=== PATIENT | male | born 2000 | race Caucasian/White ===

== ENCOUNTER 2022-06-21 22:43 | Emergency (ER) | payer BC, SELFPAY ==
[2022-06-21 22:50] VITALS: BP 114/66; PULSE 128; RESP 18; TEMP 37.4; O2SAT 100; BMI 19.0
[2022-06-21] MEDS: SODIUM CHLORIDE 0.9% 1,000 ML 1000 ML IV (23:00)
--- NOTE | 2022-06-21 23:24 | ED_ITS ---
HPI - Nausea/Vomiting/Diarrhea General Chief complaint: Nausea/Vomiting/Diarrhea Stated complaint: vomiting, heart is racing Time Seen by Provider: 06/21/22 22:48 Source: patient Mode of arrival: Ambulatory History of Present Illness HPI Narrative: 22-year-old male nonsmoker with noncontributory medical history presents with a chief complaint of nausea and vomiting along with generalized abdominal pain and heart racing. He states that he is had issues with his heart racing as high as the 130s for least the past few weeks and was unable to pursue an element at work as this has been persistent. He denies chest pain or shortness of breath along with this. He denies any trauma, injury, history of blood clot, travel, cancer or lower extremity pain, swelling or redness. He feels a bit fatigued and lightheaded and has been having trouble keeping liquids down. He states that the abdominal cramping that he feels seems to improve with vomiting. He denies any exposure to other ill persons. He is had no recent antibiotics, medication or dietary change Related Data Previous Rx's Medication Instructions Recorded ondansetron 4 mg disintegrating 4 mg PO TID-QID PRN nausea and 06/22/22 tablet vomiting #10 tabs pantoprazole 40 mg tablet,delayed 40 mg PO DAILY #30 tabs 06/22/22 release (Protonix) Allergies Allergy/AdvReac Type Severity Reaction Status Date / Time lidocaine Allergy Unknown Verified 06/22/22 00:43 procaine [From Novocain] Allergy Unknown Verified 06/22/22 00:43 Review of Systems Review of Systems Narrative: GENERAL: See HPI HEENT: Denies sinus pain, ear pain, sore throat, difficulty swallowing, dizzine ss. RESPIRATORY: Denies dyspnea, cough, wheezing, hemoptysis, sputum. CARDIOVASCULAR: See HPI GASTROINTESTINAL: See HPI : Denies dysuria, frequency, incontinence, hematuria, urinary retention. MUSCULOSKELETAL: denies weakness, joint pain, or bony pain SKIN: Denies rash, skin lesions, or other NEUROLOGIC: Denies weakness, headache, numbness, change in speech, confusion, seizures, incoordination. PSYCHIATRIC: No concerning psychosocial issues. 12 point review of systems is negative except for those stated above Patient History Social History Smoking Status: Never smoker Smoking Status: Never smoker alcohol intake frequency: a few times a month Substance Use Type: does not use Exam Narrative Exam Narrative: GENERAL: [22] year old patient appears stated age. Well-developed patient, in mild distress. HEAD: Atraumatic. Normocephalic. EYES: Pupils equal round and reactive. Extraocular motions intact. No scleral icterus. No injection or drainage. ENT: Nose without bleeding, purulent drainage. Throat without erythema, tonsillar hypertrophy or exudate. Airway patent. NECK: Trachea midline. Non tender CARDIOVASCULAR: Tachycardic but regular rhythm without murmurs, gallops, or rubs. RESPIRATORY: Clear to auscultation. Breath sounds equal bilaterally. No wheezes, rales, or rhonchi. GASTROINTESTINAL: Abdomen soft, non-tender, nondistended. EXTREMITIES: No edema or joint tenderness. BACK: Nontender without deformity or crepitance. No flank tenderness. NEURO: AOx3. SKIN: No rash or erythema of visible areas Initial Vital Signs Initial Vital Signs: Vital Signs Temperature 99.3 F 06/21/22 22:50 Pulse Rate 128 H 06/21/22 22:50 Respiratory Rate 18 06/21/22 22:50 Blood Pressure 114/66 06/21/22 22:50 Pulse Oximetry 100 06/21/22 22:50 Oxygen Delivery Method Room Air 06/21/22 22:50 Course Orders Ordered: Discontinued Medications Sodium Chloride (Normal Saline 0.9%) 1,000 mls @ 1,000 mls/hr IV BOLUS ONE Stop: 06/22/22 00:22 Last Infusion: 06/22/22 00:18 Dose: 0 mls/hr Documented By: Admin: 06/21/22 23:00 Dose: 1,000 mls/hr Documented By: FEROZ Sodium Chloride (Normal Saline 0.9%) 1,000 mls @ 1,000 mls/hr IV BOLUS ONE Stop: 06/22/22 01:41 Last Infusion: 06/22/22 01:56 Dose: 0 mls/hr Documented By: Admin: 06/22/22 00:48 Dose: 1,000 mls/hr Documented By: FEROZ Ondansetron HCl (Ondansetron 4 Mg/2 Ml Inj) 4 mg IV NOW ONE Stop: 06/21/22 23:24 Last Admin: 06/21/22 23:49 Dose: 4 mg Documented By: FEROZ Ondansetron HCl (Ondansetron 4 Mg Odt Prepack) 1 bottle MISC SEEINSTR ONE Stop: 06/22/22 03:09 Last Admin: 06/22/22 03:25 Dose: 1 bottle Documented By: ADIS Pantoprazole Sodium (Pantoprazole 40 Mg Vial) 40 mg IV NOW ONE Stop: 06/21/22 23:25 Last Admin: 06/21/22 23:49 Dose: 40 mg Documented By: FEROZ Reevaluation(s) Reevaluation #1: Significant improvement in symptoms with above-stated therapies, still tachycardic but somewhat improved Vital Signs Vital signs: Vital Signs - 8 hr 06/21/22 22:50 Temperature 99.3 F Pulse Rate 128 H Respiratory Rate 18 Blood Pressure 114/66 Pulse Oximetry 100 Oxygen Delivery Method Room Air MDM - Nausea/Vomiting/Diarrhea Lab Data 06/21/22 23:10 06/21/22 23:10 Labs: Lab Results 06/21/22 06/21/22 06/21/22 Range/Units 23:10 23:10 23:10 WBC 6.9 (4.5-11.0) X10^3/uL RBC 6.07 H (4.5-5.9) X10^6/uL Hgb 18.2 H (13.5-17.5) g/dL Hct 51.6 (41-53) % MCV 85.0 (80-100) fL MCH 30.0 (26-34) PG MCHC 35.3 (30-36) % RDW 12.8 (11.6-14.8) % Plt Count 176 (150-400) X10^3/uL Neut % (Auto) 91.9 H (50-75) % Lymph % (Auto) 3.9 L (25-40) % Pender % (Auto) 3.9 (3-14) % Eos % (Auto) 0.2 L (2-4) % Baso % (Auto) 0.1 (0-2) % Neut # (Auto) 6300 (0554-3009) /uL Lymph # (Auto) 300 L (2284-6955) /uL Pender # (Auto) 300 (0-900) /uL Eos # (Auto) 0 (0-450) /uL Baso # (Auto) 0 (0-100) /uL D-Dimer 757 H (<500) ng/ml Sodium 138 (137-145) mmol/L Potassium 4.1 (3.4-5.1) mmol/L Chloride 98 (98-107) mmol/L Carbon Dioxide 24 (22-32) mmol/L BUN 30 H (9-20) mg/dL Creatinine 1.00 (0.66-1.25) mg/dL Estimated GFR > 60 (>60) mL/min BUN/Creatinine Ratio 30.0 H (6-22) Glucose 122 H (70-100) mg/dL Calcium 9.5 (8.4-10.2) mg/dL Total Bilirubin 2.0 H (0.2-1.3) mg/dL AST 33 (17-59) IU/L ALT 20 (<50) IU/L Alkaline Phosphatase 65 (38-126) U/L Total Protein 8.6 H (6.3-8.2) g/dL Albumin 5.0 (3.5-5.0) g/dL Globulin 3.6 (1.7-4.1) g/dL Albumin/Globulin Ratio 1.4 (1.0-2.8) Urine Dip Bedside Urine Glucose Negative Bedside Urine Bilirubin - Negative Bedside Urine Ketone +++ 80 Urine Specific [place] 1.025 Bedside Urine Occult Blood - Negative Bedside Urine pH 6.0 Bedside Urine Protein + 30 Bedside Urine Urobilinogen - Negative Bedside Urine Nitrite - Negative Bedside Urine Leukocytes - Negative Esterase MDM Narrative Medical decision making narrative: CC: 22-year-old male with nausea, vomiting, tachycardia Complicating co-morbidities: History of tachycardia Data collected from: Patient Medical records reviewed: No Prior notes are able to be reviewed in our EMR Differential considered, but not limited to: Dehydration, electrolyte abnormality, pulmonary embolism versus other Exam documented above, pertinent findings include: Tachycardic and regular, w ithout increased work of breathing, abdomen soft and initially minimally, generalized tender but improved over duration. Moist mucous membranes Lab Test results independently reviewed as above. Pertinent findings: No significant leukocytosis or left shift, electrolytes within normal range, no ankush dence of renal failure. D-dimer is above age corrected cutoff Independently reviewed EKG as above Imaging studies independently reviewed: CTA of chest without evidence of pulmonary embolism or other significant abnormality. Abdomen and pelvis also without significant findings Treatments: Saline and Zofran Re-evaluations: Significant improvements in symptoms Discussion: Patient with largely reassuring history and physical exam without respiratory distress, evidence of significant dehydration or high-risk abdominal exam findings. Multiple diagnoses considered as mentioned above, however labs, imaging, response to therapies are reassuring. The underlying cause of what appears to be a persistent tachycardia is unclear at this time, I spent a fair amount of time discussing the importance of close follow-up with the patient and potential need for cardiac referral. He states that he and his significant other preparing to move to [place] and he will take this under advisement. He has been given return precautions as noted and questions answered to his apparent satisfaction Disposition: see below, along with detailed discharge instructions that have been reviewed with patient as well as indications for ED re-evaluation and additional outpatient follow up Discharge Plan Departure Patient Disposition: Home Clinical Impression: Vomiting, Sinus tachycardia Instructions: DI for Vomiting -- Adult Activity Restrictions/Additional Instructions: *You have been diagnosed with [abdominal pain nausea, vomiting and tachycardia] * As we discussed your history and physical exam as well as labs and imaging are very reassuring. There is no evidence of any severe diagnoses that would require a specific or immediate intervention. *What to do: *Please continue to take your regular medications as directed. [x ] New medication prescriptions sent to your pharmacy: [[facility] in [place] ] *Please follow up with your primary care provider in 2-3 days, call for an appointment. Let them know you were seen in the Emergency Department and that we ask that you be seen in follow up. We will electronically transmit a record of today's note if your PCP is in our system *Please consider a clear liquid diet for the next 24-48 hours and then slowly a dvance to regular as tolerated. Also, try to avoid alcohol, nicotine, caffeine, spicy, acidic or fatty foods as this may worsen your symptoms *If you do not have a primary care provider please contact the [facility] Resource line at [phone]. They will ask some questions about your medical history and help get you set up with a doctor in the community. * as we discussed you have had elevated heart rate for a while now and though there was no clear explanation tonight such as profound dehydration, anemia, underlying infection or blood clot it is something that can not be ignored you will need to follow-up with your primary care provider who will likely either have you set up with a crown ceramist or a referral to a rigger third. *Return to Emergency Department if you should have any new, worsening or concerning symptoms, such as [fever greater than 101 F, shaking chills, wor sening pain, persistent vomiting or other bothersome symptoms] Prescriptions: New pantoprazole [Protonix] 40 mg tablet,delayed release (DR/EC) 40 mg PO DAILY Qty: 30 0RF ondansetron 4 mg tablet,disintegrating 4 mg PO TID-QID PRN (Reason: nausea and vomiting) Qty: 10 0RF Stand Alone Forms: Patient Portal/API
[2022-06-21 23:37] LABS: D Dimer 757 ng/ml (<500)
[2022-06-21 23:39] LABS: Add Manual Diff / Slide Review NO; Alanine Aminotransferase 20 IU/L (<50); Albumin Globulin Ratio 1.4 (1.0-2.8); Alkaline Phosphatase 65 U/L (38-126); Aspartate Aminotransferase 33 IU/L (17-59); Basophils Absolute Auto 0 /uL (0-100); Basophils Percent Auto 0.1 % (0-2); Blood Urea Nitrogen 30 mg/dL (9-20); Calcium 9.5 mg/dL (8.4-10.2); Carbon Dioxide 24 mmol/L (22-32); Chloride 98 mmol/L (98-107); Eosinophils Absolute Auto 0 /uL (0-450); Eosinophils Percent Auto 0.2 % (2-4); Estimated Glomerular Filt Rate > 60 mL/min (>60); Globulin 3.6 g/dL (1.7-4.1); Glucose 122 mg/dL (70-100); HEMOLYSIS 18 (0-50); Hematocrit 51.6 % (41-53); Hemoglobin 18.2 g/dL (13.5-17.5); Lymphocytes Absolute Auto 300 /uL (1100-4500); Lymphocytes Percent Auto 3.9 % (25-40); Mean Corpuscular HGB Conc 35.3 % (30-36); Monocytes Absolute Auto 300 /uL (0-900); Monocytes Percent Auto 3.9 % (3-14); Neutrophils Absolute Auto 6300 /uL (1500-7000); Neutrophils Percent Auto 91.9 % (50-75); Platelet Count 176 X10^3/uL (150-400); Potassium 4.1 mmol/L (3.4-5.1); Red Blood Cell Count 6.07 X10^6/uL (4.5-5.9); Red Cell Distribution Width 12.8 % (11.6-14.8); Sodium 138 mmol/L (137-145); Total Protein 8.6 g/dL (6.3-8.2); White Blood Cell Count 6.9 X10^3/uL (4.5-11.0)
[2022-06-21] MEDS: ONDANSETRON 4 MG/2 ML INJ IV (23:49)
[2022-06-21] MEDS: PANTOPRAZOLE 40 MG VIAL IV (23:49)
[2022-06-21 23:52] VITALS: BP 125/63; PULSE 106; RESP 18; O2SAT 97
--- NOTE | 2022-06-22 00:46 | DI.CT.S_ITS ---
PROCEDURE: CT ANGIO CHEST PE PROTOCOL INDICATIONS: SOB, tachycardia, critical dimer TECHNIQUE: After the administration of intravenous contrast, 2 mm thick sections acquired from the pulmonary apices to the posterior costophrenic angles. 3-dimensional maximum intensity projection (MIP) coronal and sagittal reformats were then acquired through the thorax. For radiation dose reduction, the following was used: automated exposure control, adjustment of mA and/or kV according to patient size. COMPARISON: None. FINDINGS: Image quality: Excellent. Pulmonary arteries: Pulmonary arteries are normal in size, and demonstrate no intraluminal filling defects to suggest central pulmonary embolism. Lower Neck: No lymphadenopathy by size criteria. Thyroid: Visualized thyroid demonstrates no discrete nodules. Axillae: No lymphadenopathy by size criteria. Chest Wall: Unremarkable. Bones: Visualized osseous structures demonstrate no suspicious lesions. Lungs and Airways: No acute consolidation. No suspicious pulmonary nodules. The trachea and central airways are patent. Pleura: No pneumothorax or pleural effusions. Heart: Heart size is normal. No pericardial effusion. Thoracic Vessels: The thoracic aorta is normal in size. Mediastinum and Olya: No lymphadenopathy by size criteria. Esophagus: No wall thickening. No hiatal hernia. Abdomen: Visualized upper abdominal solid organs appear normal in the early arterial phase of enhancement. IMPRESSION: 1. No evidence of pulmonary embolism. 2. No acute airspace consolidation. Dictated by: Tomi Nagy M.D. on 06/22/2022 at 2:12 Approved by: Tomi Nagy M.D. on 06/22/2022 at 2:17
[2022-06-22] MEDS: SODIUM CHLORIDE 0.9% 1,000 ML 1000 ML IV (00:48)
--- NOTE | 2022-06-22 01:02 | DI.CT.S_ITS ---
PROCEDURE: CT ABDOMEN PELVIS W CON INDICATIONS: abdominal pain, N/V TECHNIQUE: After the administration of IV contrast, axial sections were acquired from the lung bases to the pubic symphysis. Coronal and sagittal reformats were performed. For radiation dose reduction, the following was used: automated exposure control, adjustment of mA and/or kV according to patient size. COMPARISON: [facility], CT, CT ANGIO CHEST PE PROTOCOL, 06/22/2022, 1:09. FINDINGS: Image quality: Excellent. Lung bases: Unremarkable. Heart: Heart is normal in size. ABDOMEN: Liver: No mass lesion. Gallbladder: Within normal limits without calcified gallstones. Biliary ducts: No biliary ductal dilatation. Pancreas: Unremarkable. Spleen: Normal in size. Adrenal Glands: No adrenal nodules. Kidneys and Ureters: No hydronephrosis. There is a left extrarenal pelvis. Stomach and Bowel: Stomach, small bowel loops, and colon are normal in caliber and wall thickness. No pericecal inflammatory changes to suggest appendicitis. Peritoneum: No abnormal intraperitoneal fluid. No free air. Ventral Wall: No hernia. Abdominal Nodes: No retroperitoneal or mesenteric adenopathy by size criteria. Vessels: Aorta and inferior vena cava are normal in size. PELVIS: Pelvic Organs: Unremarkable. Bladder: Unremarkable. Pelvic Nodes: No enlarged lymph nodes. Miscellaneous: No inguinal hernias are seen. Bones: Visualized osseous structures demonstrate no suspicious focal lesions. IMPRESSION: 1. No definite acute intra-abdominal abnormality. Specifically, no evidence of bowel obstruction. 2. No evidence of appendicitis. Dictated by: Tomi Nagy M.D. on 06/22/2022 at 2:18 Approved by: Tomi Nagy M.D. on 06/22/2022 at 2:20
[2022-06-22 02:05] VITALS: BP 114/68; PULSE 116; RESP 18; O2SAT 98
[2022-06-22 03:25] VITALS: BP 122/60; PULSE 104; RESP 16; TEMP 36.6; O2SAT 98
[2022-06-22] MEDS: ONDANSETRON 4 MG ODT PREPACK 1 BOTTLE MISC (03:25)
== END 2022-06-22 03:25 | disposition home or self-care (01) ==
PROVIDERS: Emergency Provider Emergency Medicine
DX: R00.0 Tachycardia, unspecified (principal); R11.2 Nausea with vomiting, unspecified
CPT/HCPCS: 36415; 71275; 74177; 80053; 81003; 85025; 85379; 93005; 96361; 96374; 96375; 99284; C9113; J2405; Q9967